=== PATIENT | female | born 1935 | race Caucasian/White ===

== ENCOUNTER 2016-10-15 10:35 | Inpatient (IN) | payer OTHER ==
[~2016-10-15 10:35] MED LIST: BACITRACIN 50,000 UNITS/10 ML SYR IRR ONE; BUPIVACAINE 0.25% 30 ML SDV ONE; BUPIVACAINE/EPI 0.25% 30 ML SDV ONE; CHLORHEXIDINE GLUC HIBICLENS 118 ML BTL TP ONE; CITRATE DEXTROSE SOLN 500 ML BAG ONE; PROPOFOL 200 MG/20 ML VIAL ONE; PROPOFOL/EMULSION 500 MG/50 ML BOTTLE IV ONE; REMIFENTANIL HCL 1 MG VIAL ONE; THROMBIN (BOVINE) 20,000 UNIT VIAL TP ONE; ceFAZolin 2 GM/DEXTROSE 100 ML IV ONE; fentaNYL 100 MCG/2 ML INJ IT ONE; morphINE PF 5 MG/10 ML INJ IT ONE
[2016-10-15] MEDS ORDERED: DEXAMETHASONE 10 MG/ML VIAL ONE (10:50)
[2016-10-15] MEDS ORDERED: CEFAZOLIN 2 GM/DEXTROSE/100 ML BAG IV ONE (10:50)
[2016-10-15] MEDS ORDERED: LR 1,000 ML IV ONE (12:04)
[2016-10-15] MEDS ORDERED: AMINOCAPROIC ACID 5 GM/20 ML VIAL ONE (13:49)
[2016-10-15] MEDS ORDERED: fentaNYL 100 MCG/2 ML INJ ONE ×3 (13:53→18:56)
[2016-10-15] MEDS ORDERED: ONDANSETRON 4 MG/2 ML VIAL ONE (14:56)
[2016-10-15] MEDS ORDERED: DEXAMETHASONE 4 MG/ML VIAL ONE (14:56)
[2016-10-15] MEDS ORDERED: SUGAMMADEX SODIUM 200 MG/2 ML VIAL IVP ONE (15:55)
[2016-10-15] MEDS ORDERED: PHENYLEPHRINE 10 MG/ML SDV ONE (16:07)
[2016-10-15] MEDS ORDERED: PROPOFOL/EMULSION 500 MG/50 ML BOTTLE IV ONE (16:43)
[2016-10-15] MEDS ORDERED: morphINE PF 10 MG/10 ML INJ ONE (16:51)
[2016-10-15] MEDS ORDERED: ceFAZolin 1 GM VIAL ONE (17:32)
[2016-10-15] MEDS ORDERED: NALOXONE HCL 0.4 MG/ML INJ IVP PRN (18:12)
[2016-10-15] MEDS ORDERED: HYDROmorphONE/DILAUDID 6 MG/30 ML PCA IV PRN (18:12)
[2016-10-15] MEDS ORDERED: ACETAMINOPHEN 325 MG TAB PO PRN (18:12)
[2016-10-15] MEDS ORDERED: LACTULOSE 20 GM/30 ML UDCUP PO PRN (18:12)
[2016-10-15] MEDS ORDERED: MAGNESIUM HYDROXIDE 30 ML UDCUP PO PRN (18:12)
[2016-10-15] MEDS ORDERED: BISACODYL 10 MG SUPP PR PRN (18:12)
[2016-10-15] MEDS ORDERED: ONDANSETRON DISINTEGRATING 4 MG TAB PO PRN (18:12)
[2016-10-15] MEDS ORDERED: ONDANSETRON 4 MG/2 ML VIAL IVP PRN (18:12)
[2016-10-15] MEDS ORDERED: DIAZEPAM 10 MG/2 ML SYR IVP PRN (18:12)
[2016-10-15] MEDS ORDERED: DIAZEPAM 5 MG TAB PO PRN (18:12)
[2016-10-15] MEDS ORDERED: NS W/ 20 KCl/L 1,000 ML IV SCH (18:15)
--- NOTE | 2016-10-15 18:18 | SOAPPROG ---
SOAP Progress Note Assessment/Plan: Assessment: 80 yo F sp L2-4 fusion Plan: stable to 3N overnight PT/OT x-rays in am LSO to be fit in am please call with neuro changes 10/15/16 18:17 Subjective: + back pain, no leg pain. Objective: somnolent, PERRL, no facial droop ESTEFANY x 4 + light touch ICD10 Worksheet Patient Problems: Problems Problem Status Onset Fusion of spine of lumbar region Acute - ICD10 Problem Qualifiers (1) Fusion of spine of lumbar region
--- NOTE | 2016-10-15 18:42 | GOP ---
ADDENDUM TO PREVIOUSLY DICTATED REPORT Please note that in performing the decompression at L2-3, there was what appeared to be a large facet cyst that was extremely adherent to the dura and causing severe compression, and this was very meticulously dissected off using the curettes and under high-power microscopy. I think that this is part of the patient's problem with regard to her left lower extremity radiculopathy. /[id number] JANEE JANEE, skchriss ORIGINAL REPORT [f rep st] OPERATIVE REPORT DATE OF OPERATION: 10/15/2016 SURGEON: Donaldo Gupta MD [employer] WORKER: BONIFACIO Shukla ANESTHESIA: General endotracheal. PREOPERATIVE DIAGNOSIS: Severe multilevel degenerative disk disease with spinal stenosis and lateral recess impingement. Intractable back pain and left greater than right lower extremity radicular symptoms. Failed conservative care. High-risk surgical candidate given age of 80 years, comorbidities, and required surgical intervention. POSTOPERATIVE DIAGNOSIS: Severe multilevel degenerative disk disease with spinal stenosis and lateral recess impingement. Intractable back pain and left greater than right lower extremity radicular symptoms. Failed conservative care. High-risk surgical candidate given age of 80 years, comorbidities, and required surgical intervention. PROCEDURE PERFORMED: Mini open exposure for left-sided L2-3 and L3-4 far lateral transfacet transpedicular decompression with L2 through L4 posterior segmental (pedicle screw and Axle device) fixation and posterolateral fusion with local autograft, bone morphogenic protein, and morselized allograft. L2-3 and L3-4 posterior/transforaminal lumbar interbody fusion with 2 structural PEEK interbody spacers, local autograft and bone morphogenic protein at each level. Use of intraoperative microscopy, fluoroscopy, and computer volumetric stereotactic navigation with intraoperative neurophysiologic testing. Injection of intrathecal narcotic analgesics and subcutaneous and intramuscular local anesthesia for postoperative pain control. FINDINGS: ESTIMATED BLOOD LOSS: 300 cc. INDICATIONS: The patient is an 80-year-old woman with intractable low back pain and left greater than right lower extremity radicular symptoms and neurogenic claudication. She has severe neural foraminal and lateral recess impingement and has failed extensive conservative care. She has extensive multilevel disease throughout her lumbosacral spine, but it was felt that a bigger operation would not be in her best interest given her age, and we are focusing on the 2 worst levels. The patient understands that she is still likely to have some ongoing symptoms, given her diffuse disease. DESCRIPTION OF PROCEDURE: After informed consent was obtained, the patient was taken to the operating room and placed in the prone position on the Terry table. The lumbosacral area was prepped and draped in a sterile fashion. After fluoroscopic localization of the correct levels, the subcutaneous and intramuscular tissues were infiltrated with local anesthesia. A midline linear incision was then created over the L2-4 spinous processes. This was carried down to the fascial layer, which was incised using the monopolar electrocautery and carried in a subperiosteal plane along the spinous processes and out the lamina bilaterally. Intraoperative fluoroscopy was again utilized to verify the correct levels. The anatomy was extremely distorted given the severe arthritis and also the history of the prior surgery and some defect and extensive scar tissue. This was meticulously dissected out and also verified using fluoroscopy. Following verification of the correct levels, left-sided far lateral transfacet transpedicular decompressions were performed with complete unroofing of the L2-3 and L3-4 facet joints and decompression of the lateral recess and central canal. Following this, the [employer] neuronavigational system was brought in and using computer volumetric stereotactic navigation, pedicle screws were placed at L2, L3, and L4 bilaterally. Each individual screw was tested neurophysiologically with monopolar electrostimulation and interpretation of the potentials by the surgeon. Note that the bone was extremely soft, so we placed longer than normal screws in order to maximize the bone screw purchase. The right L3 pedicle cracked slightly as we were putting it in. I felt that it was in the patient's best interest to leave that in place and not remove it, but also reinforce the fixation with Axle devices in the end, if we could. Following this, the rods were then placed and secured under a slight amount of distraction , first at L3-4, then at L2-3, during which time complete diskectomies were performed with preparation of the endplates and placement of 2 structural PEEK interbody spacers, local autograft and bone morphogenic protein at each level for L2-3 and L3-4 posterior/transforaminal lumbar interbody fusions. The screw and ellie systems were then placed in a slight amount of compression in order to facilitate bony union and to minimize the potential for posterior graft migration. Following re-verification of good position of the screws, rods, and interbody spacers, an Axle device was placed at the L3-4 level. Unfortunately, the patient's anatomy did not allow for 1 to be placed at the L2-3 level. 200 mcg of Duramorph along with 50 mcg of fentanyl were then injected intrathecally for postoperative pain control. The subcutaneous and intramuscular tissues were re-infiltrated with local anesthesia. The remaining lamina and facet joints were extensively decorticated, and the residual local autograft, along with bone morphogenic protein and morselized allograft was placed out laterally for posterolateral fusion from L2 through L4. Following this, a drain was placed, and the wound was closed in a layered fashion using interrupted Vicryl sutures followed by Steri-Strips on the skin. COMPLICATIONS: None. DISPOSITION: The patient is currently in the process of being repositioned for extubation. /[id number]/MODL MTDD
[2016-10-15] MEDS ORDERED: NON-FORMULARY NEW DRUG (Potassium Chloride [Klor-Con 10] 10 MEQ) PO SCH (21:00)
[2016-10-15] MEDS: FAMOTIDINE 20 MG/NACL 50 ML IV SCH (21:37)
[2016-10-15] MEDS: POTASSIUM CL 10 MEQ TAB PO SCH (21:37)
[2016-10-15] MEDS: SENNOSIDES/DOCUSATE SODIUM TAB PO SCH (21:37)
[2016-10-15] MEDS: LOSARTAN POTASSIUM 25 MG TAB PO SCH (21:42)
[2016-10-15] MEDS: POLYETHYLENE GLYCOL 3350 17 GM PKT PO SCH (21:50)
[2016-10-15] MEDS: diphenhydrAMINE 25 MG CAP PO PRN (23:23)
[2016-10-16] MEDS ORDERED: CANN-EASE 2 GM TUBE TP PRN (00:57)
[2016-10-16] MEDS: LEVOTHYROXINE 25 MCG TAB PO SCH (04:58)
[2016-10-16] MEDS: diphenhydrAMINE 25 MG CAP PO PRN ×2 (04:58→11:18)
[2016-10-16 05:20] LABS: % IMMATURE GRANULYOCYTES 0.3 % (0.0-1.1); ABSOLUTE IMMATURE GRANULOCYTES 0.03 10^3/uL (0.00-0.10); ADD DIFF? NO; ADD MORPH? NO; ADD SCAN? NO; ATYPICAL LYMPHOCYTE FLAG 0 (0-99); FRAGMENT RBC FLAG 0 (0-99); HEMATOCRIT 31.6 % (38.0-47.0); HEMOGLOBIN 10.6 g/dL (12.6-16.3); LEFT SHIFT FLG 0 (0-99); LIPEMIA HEMOLYSIS FLAG 80 (0-99); MEAN CELL HEMOGLOBIN 31.7 pg (27.9-34.1); MEAN CELL HEMOGLOBIN CONCENTR. 33.5 g/dL (32.4-36.7); MEAN CELL VOLUME 94.6 fL (81.5-99.8); MEAN PLATELET VOLUME 10.5 fL (8.7-11.7); PLATELET CLUMPS FLAG 0 (0-99); PLATELET COUNT 143 10^3/uL (150-400); RED BLOOD CELL COUNT 3.34 10^6/uL (4.18-5.33); RED CELL DISTRIBUTION WIDTH 13.2 % (11.5-15.2)
[2016-10-16 05:33] LABS: ANION GAP 5 mEq/L (8-16); CALCIUM 8.4 mg/dL (8.5-10.4); CARBON DIOXIDE 23 mEq/l (22-31); CHLORIDE 109 mEq/L (97-110); CREATININE 0.6 mg/dL (0.6-1.0); GLOMERULAR FILTRATION RATE > 60; GLUCOSE 116 mg/dL (70-100); POTASSIUM 4.9 mEq/L (3.5-5.2); SODIUM 137 mEq/L (134-144)
--- NOTE | 2016-10-16 07:58 | NEUSURGPN ---
Date of Surgery: 10/15/16 Post Op Day: 1 Assessment/Plan: 80 yo female s/p L2-L4 TLIF - neuro stable - pain controlled - dc guajardo today - wear brace when out of bed - PT/OT - postop L-spine x-rays pending - continue KIMBERLEY drain - dispo: likely will require rehab Subjective: Doing well this morning. No LE pain, numbness, tingling. Objective: Awake. Alert. Following commands LE strength 5/5 Sensation intact Catheter Insertion Date: 10/15/16 - Physician Discussed Patient with DrWilliam: Candy Neurosurgery Physical Exam - Vitals, I&O, Labs I and O 10/15/16 10/16/16 10/17/16 05:59 05:59 05:59 Intake Total 4575 Output Total 895 Balance 3680 Weight 66.224 kg Intake: Oral (ml) 650 IV Intake (ml) 3000 IV Infused (ml) 775 NS W/ 20 KCl/L 1,000 ml @ 675 75 mls/hr IV CONT KEENAN Rx #:[id number] ceFAZolin 1 GM/DEXTROSE 100 50 ml @ 200 mls/hr IV Q8HRS KEENAN Rx#:[id number] Autologous Blood (ml) 150 Output: Urine (ml) 300 Catheter 300 Estimated Blood Loss (ml) 300 Wound Drainage (ml) 295 Left Back Terry Montilla 295 Other: Bladder Scan Volume (ml) Catheter 13 Vital Signs Temp Pulse Resp BP Pulse Ox 36.8 C 93 16 120/56 L 96 10/16/16 04:33 10/16/16 04:33 10/16/16 04:33 10/16/16 04:33 10/16/16 04:33 Laboratory Results 10/16/16 04:29 10/16/16 04:29 ICD10 Worksheet Patient Problems: Problems Problem Status Onset Fusion of spine of lumbar region Acute
[2016-10-16] MEDS ORDERED: NIACIN 500 MG TAB PO SCH (09:00)
[2016-10-16] MEDS ORDERED: NON-FORMULARY NEW DRUG (Magnesium [Magnesium Oxide 200 Mg] 1 TAB) PO SCH (09:00)
[2016-10-16] MEDS: CHOLECALCIFEROL VIT D3 1,000 UNITS TAB PO SCH (09:31)
[2016-10-16] MEDS: POLYETHYLENE GLYCOL 3350 17 GM PKT PO SCH ×3 (09:31→21:00)
[2016-10-16] MEDS: FAMOTIDINE 20 MG/NACL 50 ML IV SCH (09:31)
[2016-10-16] MEDS: FLUoxetine 20 MG CAP PO SCH (09:32)
[2016-10-16] MEDS: ENOXAPARIN 40 MG/0.4 ML SYR SC SCH (09:32)
[2016-10-16] MEDS: LOSARTAN POTASSIUM 25 MG TAB PO SCH ×2 (09:32→21:00)
[2016-10-16] MEDS: SENNOSIDES/DOCUSATE SODIUM TAB PO SCH ×2 (09:32→20:59)
[2016-10-16] MEDS: MAGNESIUM OXIDE 400 MG TAB PO SCH (09:32)
[2016-10-16] MEDS: POTASSIUM CL 10 MEQ TAB PO SCH ×2 (09:32→20:59)
[2016-10-16] MEDS: oxyCODONE IR 5 MG TAB PO PRN ×2 (12:44→18:17)
[2016-10-16] MEDS: FAMOTIDINE 20 MG TAB PO SCH (21:00)
[2016-10-17] MEDS: OXYCODONE/APAP 5/325 TAB PO PRN ×2 (00:20→09:56)
[2016-10-17] MEDS: LOSARTAN POTASSIUM 25 MG TAB PO SCH ×3 (00:21→20:29)
[2016-10-17] MEDS: METHOCARBAMOL 750 MG TAB PO PRN ×3 (00:21→16:29)
[2016-10-17] MEDS: oxyCODONE IR 5 MG TAB PO PRN (05:56)
[2016-10-17] MEDS: LEVOTHYROXINE 25 MCG TAB PO SCH (05:56)
--- NOTE | 2016-10-17 07:46 | NEUSURGPN ---
Assessment/Plan: 80 yo female s/p L2-L4 TLIF - POD#2 - neuro stable - pain controlled - wear brace when out of bed - PT/OT -TEDs, SCDs, on lovenox - postop L-spine x-rays show stable hardware - continue KIMBERLEY drain - dispo: likely will require rehab, states she isn't walking very well Subjective: Pt resting in bed, states she slept ok. Back pain. Walking is difficult. Objective: AAOx3 NAD VSS MAEx4 Motor 5/5 BLE Incision cdi JPx1 Urinary Catheter in Place: No Catheter Insertion Date: 10/15/16 Neurosurgery Physical Exam - Vitals, I&O, Labs I and O 10/16/16 10/17/16 10/18/16 05:59 05:59 05:59 Intake Total 4575 500 Output Total 895 1305 Balance 3680 -805 Weight 66.224 kg Intake: Oral (ml) 650 500 IV Intake (ml) 3000 IV Infused (ml) 775 NS W/ 20 KCl/L 1,000 ml @ 675 75 mls/hr IV CONT KEENAN Rx #:[id number] ceFAZolin 1 GM/DEXTROSE 100 50 ml @ 200 mls/hr IV Q8HRS KEENAN Rx#:[id number] Autologous Blood (ml) 150 Output: Urine (ml) 300 1100 Catheter 300 500 Toilet 600 Estimated Blood Loss (ml) 300 Wound Drainage (ml) 295 205 Left Back Terry Montilla 295 205 Other: Number of Voids Toilet 1 Bladder Scan Volume (ml) Catheter 13 Vital Signs Temp Pulse Resp BP Pulse Ox 37.0 C 86 20 128/62 H 94 10/17/16 07:35 10/17/16 07:35 10/17/16 07:35 10/17/16 07:35 10/17/16 07:35 Laboratory Results 10/16/16 04:29 10/16/16 04:29 ICD10 Worksheet Patient Problems: Problems Problem Status Onset Fusion of spine of lumbar region Acute
[2016-10-17] MEDS: HYDROmorphONE/DILAUDID 1 MG/ML SYR IVP PRN (08:14)
[2016-10-17] MEDS: FLUoxetine 20 MG CAP PO SCH (09:51)
[2016-10-17] MEDS: MAGNESIUM OXIDE 400 MG TAB PO SCH (09:51)
[2016-10-17] MEDS: ENOXAPARIN 40 MG/0.4 ML SYR SC SCH (09:54)
[2016-10-17] MEDS: POLYETHYLENE GLYCOL 3350 17 GM PKT PO SCH ×3 (09:54→20:29)
[2016-10-17] MEDS: SENNOSIDES/DOCUSATE SODIUM TAB PO SCH ×2 (09:54→20:28)
[2016-10-17] MEDS: POTASSIUM CL 10 MEQ TAB PO SCH ×2 (09:54→20:28)
[2016-10-17] MEDS: FAMOTIDINE 20 MG TAB PO SCH ×2 (09:54→20:28)
[2016-10-17] MEDS: CHOLECALCIFEROL VIT D3 1,000 UNITS TAB PO SCH (10:05)
[2016-10-18] MEDS: oxyCODONE IR 5 MG TAB PO PRN ×5 (03:05→23:57)
[2016-10-18] MEDS: HYDROmorphONE/DILAUDID 1 MG/ML SYR IVP PRN (03:05)
[2016-10-18] MEDS: METHOCARBAMOL 750 MG TAB PO PRN ×2 (03:05→23:57)
[2016-10-18] MEDS: LEVOTHYROXINE 25 MCG TAB PO SCH (05:17)
[2016-10-18] MEDS: OXYCODONE/APAP 5/325 TAB PO PRN (05:17)
--- NOTE | 2016-10-18 08:02 | NEUSURGPN ---
Assessment/Plan: 80 yo female s/p L2-L4 TLIF - POD#3 - neuro stable - pain management - add ice packs, scheduled tylenol. Try for better pain control with less sedation - wear brace when out of bed - PT/OT -TEDs, SCDs, on lovenox - postop L-spine x-rays show stable hardware - KIMBERLEY drain had only 35 out last 24 hours, removed and dressing changed - dispo: will require rehab/SNF. Work on placement, likely DC tomorrow. Subjective: Pt resting in bed, c/o pain with movement and medications knocking her out. Objective: AAOx3 NAD VSS MAEx4 Motor 5/5 BLE Incision cdi steri strips in place KIMBERLEY removed intact Urinary Catheter in Place: No Catheter Insertion Date: 10/15/16 Neurosurgery Physical Exam - Vitals, I&O, Labs I and O 10/17/16 10/18/16 10/19/16 05:59 05:59 05:59 Intake Total 500 750 Output Total 1305 335 Balance -805 415 Intake: Oral (ml) 500 750 Output: Urine (ml) 1100 300 Catheter 500 Toilet 600 300 Wound Drainage (ml) 205 35 Left Back Terry Montilla 205 35 Other: Intake Quantity Yes Sufficient Number of Voids Toilet 1 1 Vital Signs Temp Pulse Resp BP Pulse Ox 37.0 C 96 16 150/86 H 93 10/17/16 22:29 10/17/16 22:29 10/17/16 22:29 10/17/16 22:29 10/17/16 22:29 Laboratory Results 10/16/16 04:29 10/16/16 04:29 ICD10 Worksheet Patient Problems: Problems Problem Status Onset Fusion of spine of lumbar region Acute
[2016-10-18] MEDS: LOSARTAN POTASSIUM 25 MG TAB PO SCH ×2 (09:16→20:31)
[2016-10-18] MEDS: MAGNESIUM OXIDE 400 MG TAB PO SCH (09:16)
[2016-10-18] MEDS: FLUoxetine 20 MG CAP PO SCH (09:17)
[2016-10-18] MEDS: CHOLECALCIFEROL VIT D3 1,000 UNITS TAB PO SCH (09:18)
[2016-10-18] MEDS: FAMOTIDINE 20 MG TAB PO SCH ×2 (09:18→20:31)
[2016-10-18] MEDS: SENNOSIDES/DOCUSATE SODIUM TAB PO SCH ×2 (09:18→20:32)
[2016-10-18] MEDS: POTASSIUM CL 10 MEQ TAB PO SCH ×2 (09:18→20:32)
[2016-10-18] MEDS: ACETAMINOPHEN 500 MG TAB PO SCH ×2 (09:18→20:30)
[2016-10-18] MEDS: ENOXAPARIN 40 MG/0.4 ML SYR SC SCH (09:19)
[2016-10-18] MEDS: POLYETHYLENE GLYCOL 3350 17 GM PKT PO SCH ×3 (09:25→20:33)
[2016-10-19] MEDS: LEVOTHYROXINE 25 MCG TAB PO SCH (05:13)
--- NOTE | 2016-10-19 07:06 | NEUSURGPN ---
Date of Surgery: 10/15/16 Post Op Day: 4 Assessment/Plan: Assessment: 80 yo female s/p L2-L4 TLIF-POD#4 Plan: -neuro stable -pain management-ice packs, scheduled Tylenol. Try for better pain control with less sedation is goal -wear brace when out of bed-tolerating well -PT/OT-CPM -TEDs, SCDs, on lovenox -postop L-spine x-rays show stable hardware -KIMBERLEY drain removed -CDI -pt plan for dc to rehab/SNF. Work on placement, likely DC today if stable and pt is accepted to rehab -d/w Dr Overton Subjective: Awake and alert. NAD. No new complaints. No foreman/neck/chest/abd or gu complaints. No f/c/n/v/d. Objective: AAOx3 NAD VSS MAEx4 Motor 5/5 BLE Incision cdi steri strips in place KIMBERLEY site looks good Neuro Check Frequency: per routine Urinary Catheter in Place: No Catheter Insertion Date: 10/15/16 - Physician Discussed Patient with DrWilliam: Candy Neurosurgery Physical Exam - Vitals, I&O, Labs I and O 10/18/16 10/19/16 10/20/16 05:59 05:59 05:59 Intake Total 750 600 Output Total 335 Balance 415 600 Intake: Oral (ml) 750 600 Output: Urine (ml) 300 Toilet 300 Wound Drainage (ml) 35 Left Back Terry Montilla 35 Other: Intake Quantity Yes Yes Sufficient Number of Voids Toilet 1 1 Vital Signs Temp Pulse Resp BP Pulse Ox 36.9 C 87 18 161/56 H 96 10/18/16 20:27 10/18/16 20:27 10/18/16 20:27 10/18/16 20:31 10/18/16 20:27 Laboratory Results 10/16/16 04:29 10/16/16 04:29 ICD10 Worksheet Patient Problems: Problems Problem Status Onset Fusion of spine of lumbar region Acute
[2016-10-19] MEDS: ACETAMINOPHEN 500 MG TAB PO SCH ×2 (08:31→20:48)
[2016-10-19] MEDS: ENOXAPARIN 40 MG/0.4 ML SYR SC SCH (08:31)
[2016-10-19] MEDS: POLYETHYLENE GLYCOL 3350 17 GM PKT PO SCH ×3 (08:31→20:48)
[2016-10-19] MEDS: MAGNESIUM OXIDE 400 MG TAB PO SCH (08:32)
[2016-10-19] MEDS: CHOLECALCIFEROL VIT D3 1,000 UNITS TAB PO SCH (08:33)
[2016-10-19] MEDS: POTASSIUM CL 10 MEQ TAB PO SCH ×2 (08:33→20:48)
[2016-10-19] MEDS: FLUoxetine 20 MG CAP PO SCH (08:33)
[2016-10-19] MEDS: SENNOSIDES/DOCUSATE SODIUM TAB PO SCH ×2 (08:33→20:48)
[2016-10-19] MEDS: LOSARTAN POTASSIUM 25 MG TAB PO SCH ×2 (08:33→20:48)
[2016-10-19] MEDS: FAMOTIDINE 20 MG TAB PO SCH ×2 (08:33→20:48)
[2016-10-19] MEDS: METHOCARBAMOL 750 MG TAB PO PRN ×2 (08:40→16:47)
[2016-10-19] MEDS: oxyCODONE IR 5 MG TAB PO PRN ×2 (11:32→16:47)
[2016-10-20] MEDS: LEVOTHYROXINE 25 MCG TAB PO SCH (06:07)
[2016-10-20 07:36] VITALS: PULSE 95; RESP 14; TEMP 98.9; O2SAT 95
--- NOTE | 2016-10-20 08:06 | SOAPPROG ---
SOAP Progress Note Assessment/Plan: Assessment: 80 yo F POD #5 L2-4 fusion Plan: stable scd/nicolas/lovenox for dvt prophylaxis PT/OT discharge to SNF today LSO when out of bed please call with neuro changes 10/15/16 18:17 10/20/16 08:05 Subjective: continued back pain, no leg pain, no weakness. Objective: Vital Signs Temp Pulse Resp BP Pulse Ox 37.2 C 95 14 148/72 H 95 10/20/16 07:35 10/20/16 07:35 10/20/16 07:35 10/20/16 07:35 10/20/16 07:35 Laboratory Results 10/16/16 04:29 10/16/16 04:29 10/19/16 10/20/16 10/21/16 05:59 05:59 05:59 Intake Total 600 Balance 600 AAOX4, +FC PERRL, EOMI, no facial droop 5/5 + light touch C/D/I ICD10 Worksheet Patient Problems: Problems Problem Status Onset Fusion of spine of lumbar region Acute - ICD10 Problem Qualifiers (1) Fusion of spine of lumbar region
[2016-10-20] MEDS: ACETAMINOPHEN 500 MG TAB PO SCH (09:29)
[2016-10-20] MEDS: oxyCODONE IR 5 MG TAB PO PRN ×2 (09:29→16:00)
[2016-10-20] MEDS: FAMOTIDINE 20 MG TAB PO SCH (09:30)
[2016-10-20] MEDS: CHOLECALCIFEROL VIT D3 1,000 UNITS TAB PO SCH (09:30)
[2016-10-20] MEDS: MAGNESIUM OXIDE 400 MG TAB PO SCH (09:30)
[2016-10-20] MEDS: FLUoxetine 20 MG CAP PO SCH (09:30)
[2016-10-20] MEDS: LOSARTAN POTASSIUM 25 MG TAB PO SCH (09:31)
[2016-10-20] MEDS: POTASSIUM CL 10 MEQ TAB PO SCH (09:31)
[2016-10-20] MEDS: SENNOSIDES/DOCUSATE SODIUM TAB PO SCH (09:34)
[2016-10-20] MEDS: POLYETHYLENE GLYCOL 3350 17 GM PKT PO SCH (09:34)
[2016-10-20] MEDS: ENOXAPARIN 40 MG/0.4 ML SYR SC SCH (09:34)
[2016-10-20 09:35] VITALS: BP 148/60
--- NOTE | 2016-10-20 11:21 | PDIAF ---
- Diagnosis Code Status: Full Code - Medication Management Discharge Medications: Medications to Continue on Transfer Cholecalciferol Vit D3 [Vitamin D3 (*)] 2,000 units PO DAILY 09/17/16 [Last Taken 10/08/16] FLUoxetine [Prozac 20 MG (*)] 20 mg PO DAILY 09/17/16 [Last Taken 10/15/16 06:00 ] Herbals/Supplements -Info Only 1 ea PO DAILY 09/17/16 [Last Taken 10/08/16] Levothyroxine [Synthroid 25 mcg (*)] 25 mcg PO DAILY06 09/17/16 [Last Taken 12/26 06:00] Losartan Potassium [Cozaar 25 mg (*)] 25 mg PO BID 09/17/16 [Last Taken 06:00] MAGNESIUM [Magnesium Oxide 200 mg] 1 tab PO DAILY 09/17/16 [Last Taken 10/08/16] Niacin [Niacin 500 mg (*)] 500 mg PO DAILY 09/17/16 [Last Taken 10/08/16] [place]-3 Fatty Acids [Fish Oil 1000 mg (*)] 1,000 mg PO DAILY 09/17/16 [Last Taken 10/08/16] Potassium Chloride [Klor-Con 10] 10 meq PO BID 09/17/16 [Last Taken 10/15/16 06: 00] Enoxaparin [Lovenox 40 MG (*)] 40 mg SC DAILY #0 syr 10/20/16 [Last Taken Unknown] Methocarbamol [Robaxin 750 mg (*)] 750 mg PO QID PRN #0 tab 10/20/16 [Last Taken Unknown] Polyethylene Glycol 3350 [Miralax 17 gm (*)] 17 gm PO TID #0 pkt 10/20/16 [Last Taken Unknown] oxyCODONE CR [Oxycontin] 10 mg PO Q12HRS #0 tab 10/20/16 [Last Taken Unknown] oxyCODONE IR [Oxycodone Ir (*)] 5 - 10 mg PO Q3HRS PRN #0 tab 10/20/16 [Last Taken Unknown] Discharge Medications: Refer to the Discharge Home Medication list for PRN reason. PICC Care - Routine: N/A - Orders Services needed: Registered Nurse, Physical Therapy, Occupational Therapy Diet Recommendation: no restrictions on diet Diet Texture: Regular Texture Diet Wound Care Instructions: ok to have incision open to air. remove steri strips on 11/01/16 - Follow Up Care Current Providers and Referrals: ANDRES ALMARAZ [Other]
--- NOTE | 2016-10-20 11:48 | GDS ---
[f rep st] DISCHARGE SUMMARY ADMISSION DIAGNOSES: Lumbar degenerative joint disease, stenosis. DISCHARGE DIAGNOSIS: Status post L2-3 and L3-4 transforaminal lumbar interbody fusion. HISTORY AND PHYSICAL: Please see admission history and physical. COURSE: Patient is an 80-year-old female who presented with low back pain and radicular leg pain. She was taken to the operating room on 10/15/16 where she underwent an L2-3 and L3-4 transforaminal lumbar interbody fusion. There were no intraoperative complications. She was admitted to the floor for observation. On the floor, she was tolerating a regular diet and her pain was controlled with p.o. pain medications. She made fair progress with physical therapy and occupational therapy. The patient was discharged to nursing home facility on 10/20/16. Patient was discharged with lumbar fusion instructions and recommended she return for a neurosurgical followup in 10-14 days. /[id number]/MODL
== END 2016-10-20 16:02 | DRG 460 ==
LOC: F3N 10:35
PROVIDERS: ADMIT Neurological Surgery; ATTEND Neurological Surgery
PROC: 8E0WXBZ Computer Assisted Procedure of Trunk Region (ICD-10-PCS; principal; 2016-10-15 12:15)
PROC: 0SG1071 Fusion of 2 or more Lumbar Vertebral Joints with Autologous Tissue Substitute, Posterior Approach, Posterior Column, Open Approach (ICD-10-PCS; principal; 2016-10-15 12:15)
PROC: 3E0V0GB Introduction of Recombinant Bone Morphogenetic Protein into Bones, Open Approach (ICD-10-PCS; principal; 2016-10-15 12:15)
PROC: 0SG10AJ Fusion of 2 or more Lumbar Vertebral Joints with Interbody Fusion Device, Posterior Approach, Anterior Column, Open Approach (ICD-10-PCS; principal; 2016-10-15 12:15)
PROC: 4A10X4G Monitoring of Central Nervous Electrical Activity, Intraoperative, External Approach (ICD-10-PCS; principal; 2016-10-15 12:15)
PROC: 01NB0ZZ Release Lumbar Nerve, Open Approach (ICD-10-PCS; principal; 2016-10-15 12:15)
DX: M51.16 Intervertebral disc disorders with radiculopathy, lumbar region (principal); M48.06 Spinal stenosis, lumbar region; M71.38 Other bursal cyst, other site; M50.30 Other cervical disc degeneration, unspecified cervical region; Z96.642 Presence of left artificial hip joint; Z96.653 Presence of artificial knee joint, bilateral
CPT/HCPCS: 97116-GP; 97161-GP; 97166-GO; 97530-GO; 97530-GP; 97535-GO; C1713; G8978-GP-CJ; G8979-GP-CI; G8980-GP-CI; G8987-GO-CK; G8988-GO-CI; J0690; J1100; J1170; J1200; J1650; J2274; J2370; J2405; J2704; J3010; J7060

== ENCOUNTER → 2018-02-23 | Outpatient (CLI) | payer OTHER | DX: Z98.1 Arthrodesis status (principal); M51.36 Other intervertebral disc degeneration, lumbar region ==

== ENCOUNTER → 2018-05-03 | Outpatient (CLI) | payer OTHER | LOC: FIMAGING 14:15 | PROVIDERS: ATTEND Neurological Surgery | DX: M43.16 Spondylolisthesis, lumbar region (principal); M51.36 Other intervertebral disc degeneration, lumbar region; M48.061 Spinal stenosis, lumbar region without neurogenic claudication; Z87.81 Personal history of (healed) traumatic fracture ==

== ENCOUNTER → 2018-09-28 | Outpatient (CLI) | payer OTHER | LOC: FIMAGING 12:13 | PROVIDERS: ATTEND Physician Assistant Surgical | DX: M48.54XA Collapsed vertebra, not elsewhere classified, thoracic region, initial encounter for fracture (principal); M48.56XD Collapsed vertebra, not elsewhere classified, lumbar region, subsequent encounter for fracture with routine healing; M51.34 Other intervertebral disc degeneration, thoracic region; Z98.1 Arthrodesis status ==